=== PATIENT | male | born 1950 | race Caucasian/White ===

== ENCOUNTER → 2024-05-07 09:28 | Outpatient (REF) | payer OTHER, SELFPAY | LOC: MRI 3T 09:28 | PROVIDERS: ATTENDING PHYSICIAN Surgery; FAMILY PHYSICIAN Family Medicine | DX: R97.20 Elevated prostate specific antigen [PSA] (principal) | CPT/HCPCS: 72197; A9575 ==

== ENCOUNTER → 2025-07-15 10:38 | Outpatient (REF) | payer OTHER, SELFPAY | LOC: MRI 3T 10:38 | PROVIDERS: ATTENDING PHYSICIAN Surgery; FAMILY PHYSICIAN Family Medicine | DX: C61 Malignant neoplasm of prostate (principal) | CPT/HCPCS: 72197; A9575 ==

== ENCOUNTER → 2025-09-21 12:20 | Outpatient (REF) | payer OTHER, SELFPAY | LOC: RCS 12:20 | PROVIDERS: ATTENDING PHYSICIAN Internal Medicine Cardiovascular Disease; FAMILY PHYSICIAN Family Medicine | DX: Z01.810 Encounter for preprocedural cardiovascular examination (principal) | CPT/HCPCS: 93306 ==

== ENCOUNTER 2025-09-26 06:24 | Day surgery (SDC) | payer OTHER, SELFPAY ==
--- NOTE | 2025-08-22 11:23 | CM ---
Demographics: confirmed
Living situation: lives independently with
Support Person Post Operatively:
History of
VN: no
SNF: no
Outpatient: CM encouraged patient to make appointment for 09/30/2025
Has patient purchased required equipment: no, cm advised patient to contact [employer] to assist with purchase of walker
PCP: Tonya
Pharmacy: [facility]
Post Operative Discharge Plan: Home with LYNDON RIVERA, and then transition to outpatient PT.
[2025-09-05 11:43] LABS: Hematocrit 39.8 % (39.0-52.0); Hemoglobin 13.6 g/dL (13.0-18.0); Mean Corp Hgb Conc. 34.2 g/dL (33.0-37.0); Mean Corpuscular Volume 89.2 fL (80.0-94.0); Platelet Count 217 10^3/uL (130-400); Red Cell Dist. Width 14.4 % (11.5-14.5)
[2025-09-05 12:33] LABS: ALT (SGPT) 43 U/L (0-50); AST (SGOT) 37 U/L (17-59); Albumin 4.4 g/dl (3.5-5.0); Alkaline Phosphatase 82 U/L (38-126); Blood Urea Nitrogen 13 mg/dl (9-20); Calcium 9.3 mg/dl (8.4-10.2); Carbon Dioxide 25 mmol/L (22-30); Chloride 103 mmol/L (98-107); Glucose 135 mg/dl (70-99); Potassium 4.2 mmol/L (3.5-5.1); Sodium 136 mmol/L (135-145); Total Protein 8.0 g/dl (6.3-8.2); eGFR > 60.00
[2025-09-05 12:44] VITALS: BMI 31.5
[2025-09-05 13:35] VITALS: BMI 31.5
[2025-09-05 14:26] LABS: Glycohemoglobin (HgbA1c) 6.9 % (4.0-5.9)
--- NOTE | 2025-09-06 16:04 | W.PN.UPDATE ---
Update Note
Progress Note Update
Abnormal EKG with first degree AV block and asymptomatic bradycardia--due to cardiac risk factors that include-75yo black male with obesity, diabetes,HTN, HLD, FH-set up cardiac clearance 09/08/25
Hx borderline diabetes, now in diabetic range-A1C 6.9--Metformin Rx with dietary control advised
ASA allergy -Eliquis $500--will defer to cardiology at appointment for coupon--if still unaffordable, will need to Rx Warfarin for DVT ppx
--- NOTE | 2025-09-12 10:07 | VNURNOTE ---
Reviewed chart. Pt is scheduled for L TKA with Dr Lim on 09/26- same day procedure. [facility] liaison called pt. No answer, left message with contact info. Referral placed in [facility].
--- NOTE | 2025-09-23 14:09 | CM ---
route manager reached out to patient to review plan for after surgery, patient for Total Knee Arthroplasty, same day surgery with Dr. iLm on 09/26/25, [facility] patient states he has set up outpatient therapy with [facility] on 09/30/25.
Plan; [facility], [facility] at [facility] on 09/30/25.
[2025-09-26] VITALS (11 sets, daily range): BP systolic 103–162; BP diastolic 64–89; PULSE 47; O2SAT 100
[2025-09-26] MEDS: NORMOSOL-R/PLASMALYTE-A 1000 IV (08:40)
[2025-09-26 08:44] LABS: Glucose - Point of Care 120 mg/dl (70-99)
[2025-09-26] MEDS: TYLENOL 650 MG PO (08:46)
[2025-09-26] MEDS: VANCOCIN 530 MG IV (09:18)
--- NOTE | 2025-09-26 11:46 | W.DS.TRANS ---
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
-
Discharge Instructions:
Sleep Apnea Risk Intermediate
Discharge Diagnosis/Procedures L TKA Dr Lim 09/26/25
Diet Diabetic, Carb Controlled
Activity With Walker
Driving Restrictions No driving
Bathing Restrictions OK to Shower
Other Services PT
Instructions:
Stand-Alone Forms: SDS Total Hip and Knee D/C
Changes to Home Medications: Yes
Discharge Medications:
DC Medications w/original date entered in [facility]
atorvastatin 10 mg tablet 20 mg PO DAILY 08/11/22
latanoprost 0.005 % eye drops 1 drp BOTH EYES HS 09/01/25
multivit,Ca,min-iron 8 mg-folic acid 200 mcg-lycopene 600 mcg tablet (Centrum Men) 1 tab PO DAILY 09/01/25
Held on 09/26/25. Instructions: Resume on 10/04/25.
mupirocin 2 % topical ointment 1 applic topical BID infection prevention #1 tube 09/02/25
cefadroxil 500 mg capsule 500 mg PO BID infection prevention #14 caps 09/05/25
dexamethasone 4 mg tablet 4 mg PO BID inflammation #6 tabs 09/05/25
famotidine 20 mg tablet 20 mg PO HS GI prophylaxis #30 tabs 09/05/25
gabapentin 300 mg capsule 300 mg PO BID sleep/pain #20 caps 09/05/25
ondansetron 4 mg disintegrating tablet 4 mg PO Q6H PRN n/v #20 tabs 09/05/25
oxycodone 5 mg tablet 5 mg PO Q6H PRN 1 tab moderate pain, 2 tabs severe pain #30 tabs 09/05/25
tamsulosin 0.4 mg capsule 0.4 mg PO HS #7 caps 09/05/25
metformin 500 mg tablet 500 mg PO DAILY Diabetes #30 tabs 09/06/25
apixaban 2.5 mg tablet (Eliquis) 2.5 mg PO BID Blood clot prevention/tx #60 tabs 09/20/25
Saccharomyces boulardii 250 mg capsule (Florastor) 250 mg PO BID #1 cap 09/26/25
acetaminophen 325 mg tablet (Tylenol) 650 mg (2 x 325 mg) PO QID #0 tabs 09/26/25
amlodipine 5 mg tablet 5 mg PO DAILY #0 tabs 09/26/25
docusate sodium 100 mg capsule (Colace) 100 mg PO BID stool softner #1 cap 09/26/25
magnesium hydroxide 400 mg/5 mL oral suspension (Milk of Magnesia) 30 ml PO HS PRN constipation #1 mL 09/26/25
sennosides 8.6 mg tablet (Senokot) 17.2 mg (2 x 8.6 mg) PO BID laxative #2 tabs 09/26/25
Home Medication Changes
mupirocin 2 % topical ointment 1 applic topical BID infection prevention #1 tube 09/02/25
cefadroxil 500 mg capsule 500 mg PO BID infection prevention #14 caps 09/05/25
dexamethasone 4 mg tablet 4 mg PO BID inflammation #6 tabs 09/05/25
famotidine 20 mg tablet 20 mg PO HS GI prophylaxis #30 tabs 09/05/25
gabapentin 300 mg capsule 300 mg PO BID sleep/pain #20 caps 09/05/25
ondansetron 4 mg disintegrating tablet 4 mg PO Q6H PRN n/v #20 tabs 09/05/25
oxycodone 5 mg tablet 5 mg PO Q6H PRN 1 tab moderate pain, 2 tabs severe pain #30 tabs 09/05/25
tamsulosin 0.4 mg capsule 0.4 mg PO HS #7 caps 09/05/25
metformin 500 mg tablet 500 mg PO DAILY Diabetes #30 tabs 09/06/25
apixaban 2.5 mg tablet (Eliquis) 2.5 mg PO BID Blood clot prevention/tx #60 tabs 09/20/25
Saccharomyces boulardii 250 mg capsule (Florastor) 250 mg PO BID #1 cap 09/26/25
acetaminophen 325 mg tablet (Tylenol) 650 mg (2 x 325 mg) PO QID #0 tabs 09/26/25
amlodipine 5 mg tablet 5 mg PO DAILY #0 tabs 09/26/25
docusate sodium 100 mg capsule (Colace) 100 mg PO BID stool softner #1 cap 09/26/25
magnesium hydroxide 400 mg/5 mL oral suspension (Milk of Magnesia) 30 ml PO HS PRN constipation #1 mL 09/26/25
sennosides 8.6 mg tablet (Senokot) 17.2 mg (2 x 8.6 mg) PO BID laxative #2 tabs 09/26/25
Pending Results: No
[2025-09-26] MEDS: SUBLIMAZE 25 MCG IV (13:32)
[2025-09-26] MEDS: CYKLOKAPRON 650 MG PO (14:20)
== END 2025-09-26 15:57 | disposition home or self-care (01) ==
LOC: SDS 06:24
PROVIDERS: ATTENDING PHYSICIAN Specialist; FAMILY PHYSICIAN Family Medicine; OTHER PHYSICIAN Physician Assistant Medical
DX: M17.12 Unilateral primary osteoarthritis, left knee (principal); G25.0 Essential tremor; C61 Malignant neoplasm of prostate; N40.0 Benign prostatic hyperplasia without lower urinary tract symptoms; E66.9 Obesity, unspecified; Z68.30 Body mass index [BMI] 30.0-30.9, adult
CPT/HCPCS: 27447; C1776; 36415; 73560; 80053; 82962; 83036; 85027; 87070; 93005; 97116; 97162